=== PATIENT | male | born 1985 | race African-American/Black ===

== ENCOUNTER 2021-06-17 02:05 | Emergency (ER) | payer OTHER ==
[~2021-06-17] VITALS: Ht 170.2 cm; Wt 108.4 kg
[2021-06-17 02:09] VITALS: BP 155/89
== END 2021-06-17 03:17 | disposition home or self-care (01) ==
LOC: ER 02:05
DX: S61.411A Laceration without foreign body of right hand, initial encounter (principal); X58.XXXA Exposure to other specified factors, initial encounter; Y93.89 Activity, other specified; Y92.89 Other specified places as the place of occurrence of the external cause; Y99.8 Other external cause status